=== PATIENT | female | born 1975 | race Caucasian/White ===

== ENCOUNTER 2017-02-18 15:54 | Emergency (ER) | payer SELFPAY ==
[~2017-02-18] VITALS: Ht 172.7 cm; Wt 63.0 kg
[2017-02-18 16:15] VITALS: BP 136/75; PULSE 70; RESP 16; TEMP 98.3; O2SAT 100
[2017-02-18 17:16] LABS: AUTOMATED NEUTROPHIL # 6.2 TH/MM3 (1.8-7.7); BASOPHIL % 0.1 % (0.0-2.0); EOSINOPHIL % 0.4 % (0.0-4.0); HEMATOCRIT 35.8 % (35.0-46.0); HEMO FLAGS DIFF FINAL; LYMPH % 13.2 % (9.0-44.0); MEAN CORPUSCULAR HEMOGLOBIN 32.3 PG (27.0-34.0); MEAN CORPUSCULAR HGB CONC 34.7 % (32.0-36.0); MONO % 7.5 % (0.0-8.0); NEUT % 78.8 % (16.0-70.0); PLATELET COUNT 237 TH/MM3 (150-450); RED BLOOD COUNT 3.84 MIL/MM3 (4.00-5.30); RED CELL DISTRIBUTION WIDTH 12.4 % (11.6-17.2); WHITE BLOOD COUNT 7.8 TH/MM3 (4.0-11.0)
[2017-02-18 17:23] LABS: BLOOD, URINE NEG (NEG); COMMENT (UR) CULT NOT INDICATED; CULTURE IF INDICATED CULT NOT INDICATED; GLUCOSE,URINE NEG (NEG); KETONE, URINE NEG (NEG); NITRITE,URINE NEG (NEG); PH, URINE 6.5 (5.0-8.5); SQUAMOUS EPITHELIAL CELL URINE 9 /hpf (0-5); URINE COLOR COLORLESS (YELLW/STRAW)
[2017-02-18 17:32] VITALS: BP 153/88; PULSE 69; RESP 17; TEMP 98.8; O2SAT 100
[2017-02-18 17:32] LABS: ALT (GPT) 13 U/L (10-53); ANION GAP 7 MEQ/L (5-15); AST (GOT) 11 U/L (15-37); BICARBONATE 22.7 MEQ/L (21.0-32.0); BLOOD UREA NITROGEN 13 MG/DL (7-18); CHLORIDE 110 MEQ/L (98-107); GLOMERULAR FILTRATION RATE 92 ML/MIN (>89); POTASSIUM 3.4 MEQ/L (3.5-5.1); SODIUM (NA) 140 MEQ/L (136-145)
[2017-02-18 17:35] LABS: ALKALINE PHOSPHATASE 54 U/L (45-117); TOTAL BILIRUBIN ADULT 0.3 MG/DL (0.2-1.0)
[2017-02-18] MEDS ORDERED: SODIUM CHLOR 0.9% 1000 ML INJ 1,000 ML IV ONE (18:07)
[2017-02-18 18:13] VITALS: BP_SYST 140; BP_SYST 141; BP_DIAS 79; BP_DIAS 80; BP_DIAS 84
[2017-02-18] MEDS ORDERED: SODIUM CHLORIDE 0.9% FLUSH 10 ML FLUSH IVF PRN (18:15)
--- NOTE | 2017-02-18 18:49 | PD ---
HPI . Dizziness Chief Complaint: Abdominal Pain Time Seen by Provider: 17:24 Travel History International Travel<30 days: Yes Contact w/Intl Traveler<30days: Yes Name of Country Traveled to: [place] Traveled to known affect area: No History of Present Illness HPI This is a patient from [place] who is here visiting from [place] with the acute onset of dizziness within the last couple of hours. Her dizziness has actually subsided. The dizziness was associated with upper abdominal/chest pain and diffuse paresthesias in her upper extremities. She denies any previous similar history. She states that she has not had excessive exposure to the sun. She states that she was not doing anything strenuous today. There were no modifying factors for her dizziness and her discomfort. She initially rated her abdominal/chest pain at 6/10 but now states that it is 0. She also now states that she is not dizzy. All of her symptoms have subsided. This patient denies any chronic medical problems. She reports hypertension with several years ago but has not been hypertensive since that time. She does not take any medications and has no known drug allergies. PFSH Past Medical History ?: Not Social History Alcohol Use: No Tobacco Use: No Substance Use: No Allergies-Medications (Allergen,Severity, Reaction): Coded Allergies: No Known Allergies (Verified Allergy, Unknown, 02/18/17) Reported Meds & Prescriptions Reported Meds & Active Scripts Active No Active Prescriptions or Reported Medications Review of Systems Except as stated in HPI: all other systems reviewed are Neg General / Constitutional: No: Fever, Chills Eyes: No: Diploplia, Blurred Vision, Photophobia HENT: Positive: Lightheadedness, No: Headaches Cardiovascular: Positive: Chest Pain or Discomfort Respiratory: No: Shortness of Breath Gastrointestinal: No: Nausea, Vomiting, Diarrhea Genitourinary: No: Urgency, Frequency, Dysuria Musculoskeletal: No: Myalgias, Arthralgias Neurologic: Positive: Paresthesia Physical Exam Narrative GENERAL: This is a healthy-appearing relatively young woman who does not appear to be in any acute distress. She does look concerned. SKIN: warm/dry. She has a bit of a sunburn on her shoulders and upper chest. HEAD: Normocephalic. Atraumatic. EYES: Pupils equal and round. No scleral icterus. No injection or drainage. ENT: No nasal bleeding or discharge. Mucous membranes pink and moist. NECK: Trachea midline. Full range of motion without pain.. CARDIOVASCULAR: Regular rate and rhythm. Heart sounds are normal. RESPIRATORY: No accessory muscle use. Clear to auscultation. Breath sounds equal bilaterally. GASTROINTESTINAL: Abdomen soft. Nontender. Bowel sounds present. Nondistended. MUSCULOSKELETAL: No obvious deformities. NEUROLOGICAL: Awake and alert. No obvious cranial nerve deficits. Motor grossly within normal limits. Normal speech. PSYCHIATRIC: Appropriate mood and affect; insight and judgment normal. Data Data Last Documented VS Vital Signs Date Time Temp Pulse Resp B/P (MAP) Pulse Ox O2 Delivery O2 Flow Rate FiO2 02/18/17 18:13 76 141/80 (100) 70 141/79 (99) 62 140/84 (102) 02/18/17 17:32 98.8 17 100 Room Air Orders Orders Complete Blood Count With Diff (02/18/17 16:24) Comprehensive Metabolic Panel (02/18/17 16:24) Urinalysis - C+S If Indicated (02/18/17 16:24) Ed Urine Pregnancytest Poc (02/18/17 16:24) Iv Access Insert/Monitor (02/18/17 16:24) Lipase (02/18/17 16:24) Electrocardiogram (02/18/17 18:07) Sodium Chloride 0.9% Flush (Ns Flush) (02/18/17 18:15) Sodium Chlor 0.9% 1000 Ml Inj (Ns 1000 M (02/18/17 18:07) Orthostatic Vital Signs (02/18/17 18:07) Troponin I (02/18/17 16:30) Labs Laboratory Tests Test 02/18/17 16:30 White Blood Count 7.8 TH/MM3 Red Blood Count 3.84 MIL/MM3 Hemoglobin 12.4 GM/DL Hematocrit 35.8 % Mean Corpuscular Volume 93.0 FL Mean Corpuscular Hemoglobin 32.3 PG Mean Corpuscular Hemoglobin Concent 34.7 % Red Cell Distribution Width 12.4 % Platelet Count 237 TH/MM3 Mean Platelet Volume 9.2 FL Neutrophils (%) (Auto) 78.8 % Lymphocytes (%) (Auto) 13.2 % Monocytes (%) (Auto) 7.5 % Eosinophils (%) (Auto) 0.4 % Basophils (%) (Auto) 0.1 % Neutrophils # (Auto) 6.2 TH/MM3 Lymphocytes # (Auto) 1.0 TH/MM3 Monocytes # (Auto) 0.6 TH/MM3 Eosinophils # (Auto) 0.0 TH/MM3 Basophils # (Auto) 0.0 TH/MM3 CBC Comment DIFF FINAL Differential Comment Urine Color COLORLESS Urine Turbidity HAZY Urine pH 6.5 Urine Specific [place] 1.005 Urine Protein NEG mg/dL Urine Glucose (UA) NEG mg/dL Urine Ketones NEG mg/dL Urine Occult Blood NEG Urine Nitrite NEG Urine Bilirubin NEG Urine Urobilinogen LESS THAN 2.0 MG/DL Urine Leukocyte Esterase NEG Urine WBC LESS THAN 1 /hpf Urine Squamous Epithelial Cells 9 /hpf Microscopic Urinalysis Comment CULT NOT INDICATED Blood Urea Nitrogen 13 MG/DL Creatinine 0.71 MG/DL Random Glucose 98 MG/DL Total Protein 6.9 GM/DL Albumin 3.6 GM/DL Calcium Level 8.7 MG/DL Alkaline Phosphatase 54 U/L Aspartate Amino Transf (AST/SGOT) 11 U/L Alanine Aminotransferase (ALT/SGPT) 13 U/L Total Bilirubin 0.3 MG/DL Sodium Level 140 MEQ/L Potassium Level 3.4 MEQ/L Chloride Level 110 MEQ/L Carbon Dioxide Level 22.7 MEQ/L Anion Gap 7 MEQ/L Estimat Glomerular Filtration Rate 92 ML/MIN Troponin I LESS THAN 0.02 NG/ML Lipase 194 U/L [facility] Medical Decision Making Medical Screen Exam Complete: Yes Emergency Medical Condition: Yes Interpretation(s) EKG shows a normal sinus rhythm with no acute ischemic change. Differential Diagnosis Differential diagnosis of dizziness includes but is not limited to vertigo, dehydration, acute blood loss, sepsis, ACS Narrative Course This patient presents with dizziness, chest discomfort and paresthesias which have all now resolved. Ordered a bag of IV fluid to run during her evaluation as she could be dehydrated. Orthostatic vital signs are negative. CBC & BMP Diagram 02/18/17 16:30 Total Protein 6.9, Albumin 3.6, Calcium Level 8.7, Alkaline Phosphatase 54, Aspartate Amino Transf (AST/SGOT) 11 L, Alanine Aminotransferase (ALT/SGPT) 13, Total Bilirubin 0.3 UA is negative. trop < 0.02. Patient states that she feels good. She will be discharged home. I will give her a supplemental potassium prior to discharge. Diagnosis Primary Impression: Dizziness Additional Impression: Hypokalemia Patient Instructions: Dizziness (ED), General Instructions, Hypokalemia (DC) Scripts No Active Prescriptions or Reported Meds Disposition: 01 DISCHARGE HOME Condition: Stable Mary Ann Lobo MD Feb 18, 2017 18:49
[2017-02-18] MEDS ORDERED: POTASSIUM CHLORIDE 20 MEQ CONTROLLED RELEASE TAB PO ONE (19:00)
[2017-02-18 19:07] VITALS: BP 158/82; PULSE 86; RESP 15; O2SAT 100
--- NOTE | 2017-02-18 21:17 | EKG ---
Date Performed: 02/18/2017 Time Performed: 18:22:09 PTAGE: 41 years EKG: Sinus rhythm WITH SINUS ARRHYTHMIA WITH SHORT MN INTERVAL BORDERLINE ECG NO PREVIOUS TRACING DOCTOR: Brigido Canchola Interpretating Date/Time 02/18/2017 21:15:56
== END 2017-02-18 19:20 | disposition home or self-care (01) ==
LOC: NEPD 15:54
DX: R42 Dizziness and giddiness (principal); R07.89 Other chest pain
CPT/HCPCS: 80053; 81001; 83690; 84484; 84703; 85025; 93005; 96360; 99284; J7030